=== PATIENT | male | born 1980 | race Caucasian/White ===

== ENCOUNTER → 2022-10-28 13:16 | Outpatient (CLI) | payer OTHER, SELFPAY ==
--- NOTE | 2022-10-28 | DI.RAD.S_ITS ---
PROCEDURE: XR LUMBAR SPINE 2-3V INDICATIONS: Dorsalgia, unspecified TECHNIQUE: 3 views of the lumbar spine were acquired. COMPARISON: None. FINDINGS: Bones: 5 [id number] vertebrae are present. Loss of lordosis which could be related to uscle spasm, rigidity or simply positional. Moderate disc height loss at the L5-S1 level. No vertebral body compression fractures. No suspicious bony lesions. Soft tissues: Overlying bowel gas pattern is normal. No suspicious soft tissue calcifications. IMPRESSION: Loss of lordosis and mild disc degeneration at the L5-S1 level. Dictated by: Alfredito YOUNG Interpreted: Amrit Cruz MD on 10/28/2022 at 14:13 Transcribed by: JADEN on 10/28/2022 at 14:14 Approved by: Amrit Cruz M.D. on 11/07/2022 at 17:47
== END ==
PROVIDERS: PCP Family Medicine; Referring Provider Family Medicine; Visit Provider Family Medicine
DX: M51.37 Other intervertebral disc degeneration, lumbosacral region (principal); M54.9 Dorsalgia, unspecified
CPT/HCPCS: 72100